=== PATIENT | male | born 1980 | race Caucasian/White ===

== ENCOUNTER 2018-05-15 20:07 | Emergency (ER) | payer OTHER ==
[2018-05-15 21:16] LABS: ALT 41 U/L (21-72); AST 31 U/L (17-59); Albumin 4.8 g/dL (3.5-5.0); Alkaline Phosphatase 77 U/L (38-126); Anion Gap 12 mmol/L; Blood Urea Nitrogen 27 mg/dL (9-20); Calcium 9.7 mg/dL (8.4-10.2); Carbon Dioxide 23 mmol/L (22-30); Chloride 105 mmol/L (98-107); Glucose 94 mg/dL (74-99); Potassium 3.9 mmol/L (3.5-5.1); Sodium 140 mmol/L (137-145); Total Bilirubin 0.6 mg/dL (0.2-1.3); Total Protein 7.7 g/dL (6.3-8.2)
[2018-05-15 21:19] LABS: Creatine Kinase 162 U/L (55-170)
[2018-05-15 21:31] LABS: Creatine Kinase MB 0.6 ng/mL (0.0-2.4); Troponin I <0.012 ng/mL (0.000-0.034)
[2018-05-15 21:58] LABS: Basophils % (A) 0 %; Eosinophils # (A) 0.2 k/uL (0-0.7); Eosinophils % (A) 2 %; HCT 48.1 % (39.0-53.0); HGB 15.9 gm/dL (13.0-17.5); Lymphocytes % (A) 23 %; MCH 29.5 pg (25.0-35.0); MCHC 33.1 g/dL (31.0-37.0); Mean Platelet Volume 6.7; Monocytes # (A) 0.5 k/uL (0-1.0); Monocytes % (A) 6 %; Neutrophils # (A) 5.7 k/uL (1.3-7.7); Neutrophils % (A) 67 %; Platelet Count 238 k/uL (150-450); RDW 13.2 % (11.5-15.5); WBC 8.5 k/uL (3.8-10.6)
--- NOTE | 2018-05-15 22:11 | XR ---
EXAMINATION TYPE: XR chest 2V DATE OF EXAM: 05/15/2018 COMPARISON: NONE HISTORY: Chest pain TECHNIQUE: Frontal and lateral views of the chest are obtained. FINDINGS: Heart and mediastinum are normal. Lungs are clear. Diaphragm is normal. Bony thorax appear s normal. IMPRESSION: Normal chest
[2018-05-15 22:29] LABS: D-Dimer 0.19 mg/L FEU (<0.60); Partial Thromboplastin Time 22.4 sec (22.0-30.0); Prothrombin Time 10.2 sec (9.0-12.0)
--- NOTE | 2018-05-15 23:30 | ED ---
General Adult HPI - General Chief complaint: Chest Pain Stated complaint: Chest Pain Time Seen by Provider: 05/15/18 21:15 Source: patient Mode of arrival: wheelchair Limitations: no limitations - History of Present Illness Initial comments: Is a 37-year-old male with no significant past medical history who presents to the ER for evaluation of back pain, chest pain and lightheadedness. Patient reports that approximately 2 weeks ago he woke up with some upper thoracic back pain which she attributed to sleeping funny. He reports that this pain subsided over time. Patient reports that yesterday he was sitting at his computer and noticed some recurrence of the upper thoracic back pain but did not think much of it. He was in his usual state of health throughout the day today until this evening when he was walking on his porch and talking on the telephone. He reports he wasn't having is particularly stressful conversation was just chatting with a friend. He reports that he began to feel some pain in the right side of his chest along with pain in his back and some lightheadedness. Patient reports that he took some ibuprofen which resolved his back pain but he still had a little bit of discomfort in his chest patient does have a family history of cardiac disease including MRIs and needing stenting in people on his mother said the family, some in their 40s and 50s, no history of sudden cardiac . No history of DVT or PE. That due to his multitude of symptoms he decided to come to the ER for evaluation. Patient does report that he has recently traveled to and from [place] for business approximately 2 weeks ago. He has not noted any swelling in one extremity or the other. He's had no shortness of breath or palpitations. Personal or family history of clotting disorder. - Related Data Allergies Allergy/AdvReac Type Severity Reaction Status Date / Time No Known Allergies Allergy Verified 05/15/18 20:24 Review of Systems ROS Statement: Those systems with pertinent positive or pertinent negative responses have been documented in the HPI. ROS Other: All systems not noted in ROS Statement are negative. Past Medical History Past Medical History: No Reported History History of Any Multi-Drug Resistant Organisms: None Reported Past Surgical History: No Surgical Hx Reported Past Psychological History: No Psychological Hx Reported Smoking Status: Never smoker Past Alcohol Use History: Occasional Past Drug Use History: None Reported General Exam Limitations: no limitations General appearance: alert, in no apparent distress Head exam: Present: atraumatic, normocephalic Eye exam: Present: PERRL, EOMI ENT exam: Present: normal exam, mucous membranes moist Neck exam: Present: normal inspection, full ROM. Absent: thyromegaly Respiratory exam: Present: normal lung sounds bilaterally. Absent: respiratory distress, wheezes Cardiovascular Exam: Present: regular rate, normal rhythm, normal heart sounds. Absent: systolic murmur, diastolic murmur GI/Abdominal exam: Present: soft. Absent: distended Rectal exam: Present: deferred Extremities exam: Present: full ROM, normal capillary refill. Absent: pedal edema, calf tenderness Back exam: Present: normal inspection, full ROM Neurological exam: Present: alert, oriented X3 Psychiatric exam: Present: normal affect, normal mood Skin exam: Present: dry, intact Course Vital Signs 05/15/18 20:20 Temperature 99.3 F Pulse Rate 81 Respiratory 18 Rate Blood Pressure 135/88 O2 Sat by Pulse 98 Oximetry EKG Findings - EKG Comments: EKG Findings:: Initial EKG with sinus rhythm, normal axis, normal intervals, some ST depression in lead [address] elevations is noted. Repeat EKG obtained at 2322, rate is 73, rhythm is sinus, normal axis, normal intervals, WI is 152, QRS is 90, QTc is 418, there are no ST elevations or depressions, no evidence of acute ischemia or infarction. Medical Decision Making - Medical Decision Making The patient was seen and evaluated, history was obtained from the patient Heart score is 3 - store he moderately suspicious with exertional discomfort and lightheadedness and risk factors including male, obesity and possibly family history Initial EKG with some possible ST depression in lead 2 changes Labs with no significant abnormalities, troponin negative, d-dimer negative, chest x-ray unremarkable Repeat EKG with sinus rhythm with noted sinus arrhythmia and no acute ST elevations or depressions no evidence of acute ischemia or infarction Patient is low risk for cardiac etiology of pain, also seems to be having some musculoskeletal back pain which responded to ibuprofen I offer the patient opportunity to remain in our observation unit for observation and evaluation by cardiology versus outpatient referral to cardiology, at this time the patient would prefer discharge home with outpatient follow-up. Occluding but not limited to worsening chest pain, dyspnea, lightheadedness, palpitations or new or concerning symptoms were discussed with patient the patient was discharged home in stable condition. - Lab Data Result diagrams: 05/15/18 21:47 05/15/18 20:35 Lab Results 05/15/18 05/15/18 05/15/18 Range/Units 20:35 20:35 21:47 WBC 8.5 (3.8-10.6) k/uL RBC 5.40 (4.30-5.90) m/uL Hgb 15.9 (13.0-17.5) gm/dL Hct 48.1 (39.0-53.0) % MCV 89.0 (80.0-100.0) fL MCH 29.5 (25.0-35.0) pg MCHC 33.1 (31.0-37.0) g/dL RDW 13.2 (11.5-15.5) % Plt Count 238 (150-450) k/uL Neutrophils % 67 % Lymphocytes % 23 % Monocytes % 6 % Eosinophils % 2 % Basophils % 0 % Neutrophils # 5.7 (1.3-7.7) k/uL Lymphocytes # 2.0 (1.0-4.8) k/uL Monocytes # 0.5 (0-1.0) k/uL Eosinophils # 0.2 (0-0.7) k/uL Basophils # 0.0 (0-0.2) k/uL PT (9.0-12.0) sec INR (<1.2) APTT (22.0-30.0) sec D-Dimer (<0.60) mg/L FEU Sodium 140 (137-145) mmol/L Potassium 3.9 (3.5-5.1) mmol/L Chloride 105 (98-107) mmol/L Carbon Dioxide 23 (22-30) mmol/L Anion Gap 12 mmol/L BUN 27 H (9-20) mg/dL Creatinine 1.10 (0.66-1.25) mg/dL Est GFR (CKD-EPI)AfAm >90 (>60 ml/min/1.73 sqM) Est GFR (CKD-EPI)NonAf 87 (>60 ml/min/1.73 sqM) Glucose 94 (74-99) mg/dL Calcium 9.7 (8.4-10.2) mg/dL Magnesium 2.0 (1.6-2.3) mg/dL Total Bilirubin 0.6 (0.2-1.3) mg/dL AST 31 (17-59) U/L ALT 41 (21-72) U/L Alkaline Phosphatase 77 (38-126) U/L Total Creatine Kinase 162 (55-170) U/L CK-MB (CK-2) 0.6 (0.0-2.4) ng/mL CK-MB (CK-2) Rel Index 0.4 Troponin I <0.012 (0.000-0.034) ng/mL Total Protein 7.7 (6.3-8.2) g/dL Albumin 4.8 (3.5-5.0) g/dL 05/15/18 Range/Units 21:47 WBC (3.8-10.6) k/uL RBC (4.30-5.90) m/uL Hgb (13.0-17.5) gm/dL Hct (39.0-53.0) % MCV (80.0-100.0) fL MCH (25.0-35.0) pg MCHC (31.0-37.0) g/dL RDW (11.5-15.5) % Plt Count (150-450) k/uL Neutrophils % % Lymphocytes % % Monocytes % % Eosinophils % % Basophils % % Neutrophils # (1.3-7.7) k/uL Lymphocytes # (1.0-4.8) k/uL Monocytes # (0-1.0) k/uL Eosinophils # (0-0.7) k/uL Basophils # (0-0.2) k/uL PT 10.2 (9.0-12.0) sec INR 1.0 (<1.2) APTT 22.4 (22.0-30.0) sec D-Dimer 0.19 (<0.60) mg/L FEU Sodium (137-145) mmol/L Potassium (3.5-5.1) mmol/L Chloride (98-107) mmol/L Carbon Dioxide (22-30) mmol/L Anion Gap mmol/L BUN (9-20) mg/dL Creatinine (0.66-1.25) mg/dL Est GFR (CKD-EPI)AfAm (>60 ml/min/1.73 sqM) Est GFR (CKD-EPI)NonAf (>60 ml/min/1.73 sqM) Glucose (74-99) mg/dL Calcium (8.4-10.2) mg/dL Magnesium (1.6-2.3) mg/dL Total Bilirubin (0.2-1.3) mg/dL AST (17-59) U/L ALT (21-72) U/L Alkaline Phosphatase (38-126) U/L Total Creatine Kinase (55-170) U/L CK-MB (CK-2) (0.0-2.4) ng/mL CK-MB (CK-2) Rel Index Troponin I (0.000-0.034) ng/mL Total Protein (6.3-8.2) g/dL Albumin (3.5-5.0) g/dL Disposition Clinical Impression: Chest pain in adult, Musculoskeletal back pain Disposition: HOME SELF-CARE Condition: Good Instructions: Chest Pain (ED) Is patient prescribed a controlled substance at d/c from ED?: No Referrals: None,Stated [Primary Care Provider] - 1-2 days Kiera Cooper MD [REFERRING] - 1-2 days Time of Disposition: 23:38
[2018-05-15 23:46] VITALS: BP 152/78; PULSE 83; RESP 20; TEMP 98.1
== END 2018-05-15 23:58 | disposition home or self-care (01) ==
LOC: EC 20:07
DX: M54.6 Pain in thoracic spine (principal); R07.89 Other chest pain; I49.8 Other specified cardiac arrhythmias; R42 Dizziness and giddiness; Z82.49 Family history of ischemic heart disease and other diseases of the circulatory system
CPT/HCPCS: 36415; 71046; 80053; 82550; 82553; 83735; 84484; 85025; 85379; 85610; 85730; 93005; 99285

== ENCOUNTER 2019-08-20 10:19 | Day surgery (SDC) | payer OTHER ==
[~2019-08-20 10:19] MED LIST: DEXAMETHASONE SOD PHOSPHATE 10 MG/ML 1 ML VIAL IV ONE; HEPARIN SODIUM,PORCINE 5,000 UNIT/ML 1 ML VIAL SQ ONE; LACTATED RINGERS 1,000 ML IV SCH; LIDOCAINE 1% 20 ML VIAL (10MG/ML) FOR IV START INTRADERMA PRN; ceFAZolin 3 GM in SODIUM CHLORIDE 0.9% 100 ML IVPB ONE
[2019-08-20] MEDS ORDERED: SCOPOLAMINE 1.5MG/72HR PATCH TRANSDERM ONE (11:33)
[2019-08-20] MEDS: ONDANSETRON 4 MG/2 ML VIAL IVP ONE ×2 (11:33→13:54)
[2019-08-20] MEDS ORDERED: HEPARIN SODIUM,PORCINE 5,000 UNIT/ML 1 ML VIAL SQ ONE (12:34)
[2019-08-20] MEDS ORDERED: fentaNYL (PF) 50 MCG/ML 2 ML AMP ONE (12:38)
[2019-08-20] MEDS ORDERED: ePHEDrine SULFATE/0.9% NACL/PF 50 MG/5 ML SYRINGE IV ONE (12:38)
[2019-08-20] MEDS ORDERED: NEOSTIGMINE 1 MG/ML 10 ML VIAL ONE (12:38)
[2019-08-20] MEDS ORDERED: PROPOFOL 10 MG/ML 20 ML VIAL IV ONE (12:38)
[2019-08-20] MEDS ORDERED: GLYCOPYRROLATE 0.2 MG/ML 2 ML VIAL ONE (12:38)
[2019-08-20] MEDS ORDERED: LIDOCAINE 1% INJ 10MG/ML (20 ML MDV) ONE (12:38)
[2019-08-20] MEDS ORDERED: MIDAZOLAM 2 MG/2 ML VIAL ONE (12:38)
[2019-08-20] MEDS ORDERED: ROCURONIUM BROMIDE 10 MG/ML 10 ML VIAL IV ONE (12:38)
[2019-08-20] MEDS ORDERED: BUPIVACAINE (PF) 0.25% 30 ML VIAL SQ ONE ×2 (13:06)
[2019-08-20 13:47] VITALS: TEMP 97.4
[2019-08-20 13:48] VITALS: RESP 16
--- NOTE | 2019-08-20 13:51 | P.OP ---
Date of Procedure: 08/20/19 Preoperative Diagnosis: Symptomatic cholelithiasis Postoperative Diagnosis: Same Procedure(s) Performed: Lap Mary Ellen Anesthesia: MATTA Surgeon: Herb Ramos Estimated Blood Loss (ml): 5 Disposition: PACU Description of Procedure: Patient is brought to the operative suite remained in the supine position underwent general endotracheal anesthesia per Department of anesthesia prepped and draped in usual sterile fashion timeout performed correct patient correct procedure correct site was verified. An incision was made just lateral to the umbilicus and using a 11 mm Visiport the abdomen was entered under direct visualization and insufflated no injuries were noted. 3 separate 5 mm incisions were made in the right upper quadrant and 5 mm ports were placed. This was done under direct visualization. The fundus of the gallbladder was grasped and retracted cephalad. Adhesions to the gallbladder of the omentum were taken down bluntly. De La Cruz's pouch was retracted and the cystic duct and cystic artery were skeletonized the critical view of safety was obtained the cystic duct and cystic artery were duly clipped and ligated the gallbladder was then removed from the liver bed using Bovie electrocautery hemostasis was noted. The gallbladder is removed in an Endo Catch bag through the 11 mm port site. The liver bed was once again inspected for hemostasis which was noted. The periumbilical incision fascia was closed with an 0 Vicryl with the aid of a Rafa-Agus suture passer in an interrupted fashion. Skin was closed with 4-0 Monocryl skin glue was applied patient tolerated the procedure well there are no apparent complications Plan - Discharge Summary Discharge Rx Participant: No New Discharge Prescriptions: No Action Ibuprofen [Motrin Ib] 200 - 400 mg PO Q6H PRN PRN Reason: Pain Discharge Medication List Ibuprofen [Motrin Ib] 200 - 400 mg PO Q6H PRN 08/19/19 [History] Patient Instructions/Handouts: *Surgery [facility] - Scopalamine Patch Instructions
[2019-08-20] MEDS: HYDROmorphone 0.5 MG/0.5 ML SYRINGE IVP PRN ×2 (13:54→13:58)
[2019-08-20] MEDS ORDERED: HYDROcodone/APAP 5-325MG 1 EACH TAB PO ONE (14:44)
[2019-08-20 14:57] VITALS: BP 123/78; PULSE 76
== END 2019-08-20 15:31 | disposition home or self-care (01) ==
LOC: OR 10:19
PROVIDERS: ATTEND Student in an Organized Health Care Education/Training Program
DX: K80.10 Calculus of gallbladder with chronic cholecystitis without obstruction (principal); K82.8 Other specified diseases of gallbladder; J45.909 Unspecified asthma, uncomplicated; Z82.49 Family history of ischemic heart disease and other diseases of the circulatory system
CPT/HCPCS: 88304; 47562; J2250; J1644; J1100; J2710; J0690; J2405; J2001; J3010; J2704; J1170

== ENCOUNTER 2023-08-09 12:50 | Emergency (ER) | payer OTHER ==
[2023-08-09 13:22] VITALS: RESP 18; TEMP 99.3
[2023-08-09 13:51] LABS: Basophils % (A) 0 %; Eosinophils # (A) 0.1 k/uL (0-0.7); Eosinophils % (A) 1 %; HCT 47.1 % (39.0-53.0); HGB 15.8 gm/dL (13.0-17.5); Lymphocytes # (A) 0.7 k/uL (1.0-4.8); Lymphocytes % (A) 7 %; MCH 30.3 pg (25.0-35.0); MCHC 33.6 g/dL (31.0-37.0); MCV 90.2 fL (80.0-100.0); Mean Platelet Volume 7.5; Monocytes # (A) 0.4 k/uL (0-1.0); Monocytes % (A) 4 %; Neutrophils # (A) 8.7 k/uL (1.3-7.7); Neutrophils % (A) 88 %; Platelet Count 206 k/uL (150-450); RBC 5.22 m/uL (4.30-5.90); RDW 13.4 % (11.5-15.5); WBC 9.9 k/uL (3.8-10.6)
[2023-08-09 14:03] LABS: ALT 19 U/L (4-49); AST 23 U/L (17-59); African American GFR (CKD) >90 (>60 ml/min/1.73 sqM); Albumin 4.8 g/dL (3.5-5.0); Alkaline Phosphatase 70 U/L (38-126); Anion Gap 14 mmol/L; Blood Urea Nitrogen 20 mg/dL (9-20); Calcium 9.7 mg/dL (8.4-10.2); Carbon Dioxide 20 mmol/L (22-30); Chloride 106 mmol/L (98-107); Glucose 95 mg/dL (74-99); Magnesium 2.1 mg/dL (1.6-2.3); Non-African American GFR(CKD) >90 (>60 ml/min/1.73 sqM); Potassium 4.3 mmol/L (3.5-5.1); Sodium 140 mmol/L (137-145); Total Bilirubin 1.2 mg/dL (0.2-1.3); Total Protein 7.6 g/dL (6.3-8.2)
[2023-08-09 14:20] LABS: Partial Thromboplastin Time 26.4 sec (22.0-30.0); Prothrombin Time 10.6 sec (10.0-12.5)
--- NOTE | 2023-08-09 14:23 | XR ---
EXAMINATION TYPE: XR chest 2V DATE OF EXAM: 08/09/2023 COMPARISON: 05/15/2018 HISTORY: 42-year-old male with chest pain and difficulty in breathing TECHNIQUE: PA and lateral views FINDINGS: The cardiomediastinal silhouette, aorta, and pulmonary vasculature are within normal limits. Lungs an d pleural spaces are clear. IMPRESSION: No acute cardiopulmonary process.
--- NOTE | 2023-08-09 16:11 | CT ---
EXAMINATION TYPE: CT angio chest DATE OF EXAM: 08/09/2023 COMPARISON: Radiograph same day HISTORY: 42-year-old male CP, R/O PE. TECHNIQUE: Contiguous axial scanning of the chest performed with IV Contrast, patient injected with 1 00 ml mL of Isovue 370. Coronal/sagittal MIP reconstructions performed. CT DLP: 626.5 mGycm Automated exposure control for dose reduction was used. FINDINGS: The heart is upper limits of normal size without pericardial effusion. No flattening of the intervent ricular septum reflux of contrast into the hepatic veins. Aorta normal caliber with conventional arch vessel branching anatomy. Mild bilateral gynecomastia. No thoracic lymphadenopathy by CT size criteria. There is suboptimal contrast bolus. Allowing for this limitation, no definite pulmonary embolus is se en. No consolidation or pleural effusion. Visualized upper abdomen shows cholecystectomy clips Bones: No osseous destructive process. IMPRESSION: SUBOPTIMAL CONTRAST BOLUS. ALLOWING FOR THIS LIMITATION, NO DEFINITE PULMONARY EMBOLUS IS SEEN. NO AC KATERIN PULMONARY PROCESS IDENTIFIED.
[2023-08-09] MEDS ORDERED: KETOROLAC 15 MG/ML 1 ML VIAL IVP STA (16:36)
--- NOTE | 2023-08-09 17:18 | ED ---
Chest Pain HPI - General Chief Complaint: Chest Pain Stated Complaint: chest pain,WILBER Time Seen by Provider: 08/09/23 14:11 Source: patient Mode of arrival: ambulatory Limitations: no limitations - History of Present Illness Initial Comments: This 42-year-old male presents with a complaint of some chest pain. He states that it is been present over the last 3 days. It seems to occur bilaterally and radiates into his bilateral shoulders. He denies any known injury or overuse. He states that he does work out daily by rowing for 45 minutes. He did row yesterday and did not have any problems with chest pain and it seemed to feel somewhat improved when doing so. He states that it seems somewhat worse when he lies down flat and somewhat better when he is upright. He denies any shortness of breath, fevers, chills, cough, leg pain, or leg swelling. He denies any history of DVT or PE. He has had a negative stress test in the last couple of years. He does relate a family history of cardiac disease. He was seen by his family physician over the past day or so and they prescribed him a Medrol Dosepak of this does not seem to help to any degree of us far. He relates that they felt as though symptoms likely were more musculoskeletal in nature. No other complaints or modifying factors. - Related Data Home Medications Medication Instructions Recorded Confirmed Ibuprofen [Motrin Ib] 200 - 400 mg PO Q6H PRN 08/19/19 08/19/19 Previous Rx's Medication Instructions Recorded Docusate [Colace] 100 mg PO DAILY 10 Days #10 capsule 08/20/19 HYDROcodone/APAP 5-325MG [[place] 1 tab PO Q6HR PRN 3 Days #15 tab 08/20/19 5-325] Allergies Allergy/AdvReac Type Severity Reaction Status Date / Time No Known Allergies Allergy Verified 08/09/23 13:20 Review of Systems ROS Statement: Those systems with pertinent positive or pertinent negative responses have been documented in the HPI. ROS Other: All systems not noted in ROS Statement are negative. Past Medical History Past Medical History: Asthma Additional Past Medical History / Comment(s): CURRENT: ABD PAIN, DIARRHEA HAS BEEN BETTER THE PAST 7 DAYS. EXERCISE INDUCED ASTHMA IN HIS TEENS History of Any Multi-Drug Resistant Organisms: None Reported Past Surgical History: No Surgical Hx Reported Past Anesthesia/Blood Transfusion Reactions: Motion Sickness Additional Past Anesthesia/Blood Transfusion Reaction / Comment(s): HAS NEVER GENERAL ANESTHESIA. Past Psychological History: No Psychological Hx Reported Smoking Status: Never smoker Past Alcohol Use History: Occasional Past Drug Use History: None Reported - Past Family History Mother Family Medical History: No Reported History General Exam - General Exam Comments Initial Comments: GENERAL: The patient is well nourished and well hydrated. VITAL SIGNS: Heart rate, blood pressure, respiratory rate reviewed as recorded in nurse's notes. EYES: Pupils are round and reactive. Extraocular movements are intact. No conjunctival / lid redness or swelling. ENT: No external evidence of injury, swelling, or ecchymosis. Airway is patent. Throat is clear. NECK: Nontender. No swelling or evidence of injury. No subcutaneous emphysema. Trachea is midline. No thyroid mass. HEART: Regular rate and rhythm. Good peripheral pulses. LUNGS/CHEST: Breath sounds clear and equal bilaterally. No rales, rhonchi, or wheezes. No ecchymosis, subcutaneous emphysema, or tenderness. ABDOMEN: Abdomen soft without tenderness. No palpable masses or organomegaly. No peritoneal signs. No abdominal wall swelling or ecchymosis. EXTREMITIES: No extremity tenderness. Normal muscle tone and function. No thoracolumbar tenderness. NEUROLOGIC: Sensation is grossly intact. Cranial nerve exam reveals face is symmetrical, tongue is midline, speech is clear. SKIN: No abrasions or ecchymosis is noted. No induration or masses noted. PSYCHIATRIC: Alert and oriented. Appropriate behavior and judgment. Limitations: no limitations Course Vital Signs 08/09/23 13:17 Temperature 99.3 F Pulse Rate 85 Respiratory 18 Rate Blood Pressure 116/77 O2 Sat by Pulse 99 Oximetry Chest Pain MDM - MDM The patient was seen and examined. All diagnostics are reviewed. The EKG shows a normal sinus rhythm at a rate of 81. There is no acute ST or T wave changes noted. My interpretation. The intervals are normal. The cardiac profile labs are all essentially within normal limits. The d-dimer is elevated. A CT angiogram of the chest is completed and this does show a somewhat suboptimal bolus but grossly no evidence of pulmonary embolism is identified per radiologist. The chest x-ray also does not show any acute process per my interpretation. Repeat troponin is also done and this does not show any elevation. The exact cause of patient's symptomatology is not definitively determined. There is no current evidence of myocardial infarction. The possibility of this being musculoskeletal is certainly possible. Other etiologies are possible as well. He does have a actuarial assistant. It is felt as though he may benefit from follow-up with a actuarial assistant for further evaluation and treatment. The patient is agreeable with this plan and leaves in no distress. Was pt. sent in by a medical professional or institution (, BERNABE, PERMIT AGENT, urgent care, hospital, or long-term...) When possible be specific @ -No Did you speak to anyone other than the patient for history (EMS, parent, family, police, friend...)? What history was obtained from this source @ -No Did you review nursing and triage notes (agree or disagree)? Why? @ -I reviewed and agree with nursing and triage notes Were old charts reviewed (outside hosp., previous admission, EMS record, old EKG, old radiological studies, urgent care reports/EKG's, long-term records)? Report findings @ -No old charts were reviewed Differential Diagnosis (chest pain, altered mental status, abdominal pain women, abdominal pain men, vaginal bleeding, weakness, fever, dyspnea, syncope, headache, dizziness, GI bleed, back pain, seizure, CVA, palpatations, mental health, musculoskeletal)? @ -Musculoskeletal chest pain, angina, pleuritis, pulmonary embolism, pneumothorax EKG interpreted by me (3pts min.). @ -As above X-rays interpreted by me (1pt min.). @ -As above CT interpreted by me (1pt min.). @ -As above U/S interpreted by me (1pt. min.). @ -None done What testing was considered but not performed or refused? (CT, X-rays, U/S, labs)? Why? @ -None What meds were considered but not given or refused? Why? @ -None Did you discuss the management of the patient with other professionals (professionals i.e. , BERNABE, PERMIT AGENT, lab, RT, psych nurse, transition social worker, hot wort settler, teacher, probation officer, case technician)? Give summary @ -No Was smoking cessation discussed for >3mins.? @ -No Was critical care preformed (if so, how long)? @ -No Were there social determinants of health that impacted care today? How? (Homelessness, low income, unemployed, alcoholism, drug addiction, transportation, low edu. Level, literacy, decrease access to med. care, [facility], rehab)? @ -No Was there de-escalation of care discussed even if they declined (Discuss DNR or withdrawal of care, Hospice)? DNR status @ -No What co-morbidities impacted this encounter? (DM, HTN, Smoking, COPD, CAD, Cancer, CVA, ARF, Chemo, Hep., AIDS, mental health diagnosis, sleep apnea, morbid obesity)? @ -None Was patient admitted / discharged? Hospital course, mention meds given and route, prescriptions, significant lab abnormalities, going to OR and other pertinent info. @ -Patient was discharged home. Undiagnosed new problem with uncertain prognosis? @ -No Drug Therapy requiring intensive monitoring for toxicity (Heparin, Nitro, Insulin, Cardizem)? @ -No Were any procedures done? @ -No Diagnosis/symptom? @ -Nonspecific chest pain Acute, or Chronic, or Acute on Chronic? @ -Acute Uncomplicated (without systemic symptoms) or Complicated (systemic symptoms)? @ -Uncomplicated Side effects of treatment? @ -No Exacerbation, Progression, or Severe Exacerbation? @ -No Poses a threat to life or bodily function? How? (Chest pain, [place], [place], pneumonia, PE, COPD, DKA, ARF, appy, cholecystitis, CVA, Diverticulitis, Homicidal, Suicidal, threat to staff... and all critical care pts) @ -No Disposition Clinical Impression: Chest pain Disposition: HOME SELF-CARE Condition: Good Instructions (If sedation given, give patient instructions): Chest Pain (ED) Additional Instructions: Please also follow-up with your actuarial assistant in the next 2-4 days. Please take, and/or Motrin if needed for pain. Is patient prescribed a controlled substance at d/c from ED?: No Referrals: Manjit Sanchez MD [Primary Care Provider] - 1-2 days Time of Disposition: 17:50
[2023-08-09 18:44] VITALS: BP 119/82; PULSE 87
== END 2023-08-09 18:33 | disposition home or self-care (01) ==
LOC: EC 12:50
DX: R07.9 Chest pain, unspecified (principal); J45.909 Unspecified asthma, uncomplicated
CPT/HCPCS: 36415; 93005; 85379; 80053; 83735; 84484; 85025; 85610; 85730; 71046; 71275; 99285; 96374; J1885; Q9967

== ENCOUNTER → 2024-09-02 | Outpatient (CLI) | payer OTHER ==
--- NOTE | 2024-09-02 13:22 | XR ---
EXAMINATION TYPE: XR shoulder complete BILAT DATE OF EXAM: 09/02/2024 1:16 PM COMPARISON: None CLINICAL INDICATION: Male, 43 years old with history of M25.511 ACUTE PAIN B/L SHOULDERS; [facility], pain TECHNIQUE: XR shoulder complete BILAT; examined in AP, internally rotated and scapular Y projections. FINDINGS: No evidence of acute osseous pathology, joint dislocation, or soft tissue swelling. The remaining po rtions of the visualized chest are unremarkable. IMPRESSION: No acute osseous pathology. [facility], , 09/02/2024 1:20 PM
== END | disposition home or self-care (01) ==
LOC: RADXRMAIN 11:34
PROVIDERS: ATTEND Internal Medicine
DX: M25.511 Pain in right shoulder (principal); M25.512 Pain in left shoulder